=== PATIENT | male | born 1950 | race Caucasian/White ===

== ENCOUNTER 2016-10-11 08:25 | Inpatient (IN) | payer OTHER ==
[2016-10-11] MEDS ORDERED: ASPIRIN PO STA (08:31)
[2016-10-11] MEDS ORDERED: DUONEB (A & A) ONE (08:50)
[2016-10-11 08:54] LABS: MANUAL DIFF NEEDED? NO
[2016-10-11 09:10] LABS: INR 1.07 (0.86-1.15); PROTIME 14.2 Seconds (12.1-15.5); PTT PL 36.3 Seconds (22.6-43.9)
--- NOTE | 2016-10-11 09:16 | ED EKG INTERP ---
EKG Interpretation - EKG Time of EKG reading by physician:: 08:49 EKG Read and Signed by:: Xu Byrne EKG Interpretation (*Must complete 3 of following elements*): Abnormal (rhythm - sinus tachycardia with premature supraventricular complexes and with occasional premature ventricular complexes;) Rate: 110 Comments: nonspecific ST and T wave abnormality Attestation - Scribe Verification/Attestation Scribe:: Najma Larson Acting as Scribe for:: Xu Byrne Scribe documention review:: This chart was documented by a scribe and accurately reflects the service the provider performed and the decisions made by the provider.
[2016-10-11 09:17] LABS: BASO% 0.3 % (0.0-0.8); EOS# 0.02 X1000 (0.0-0.7); EOS% 0.1 % (0.0-10.0); HEMATOCRIT 44.8 % (42.0-52.0); HEMOGLOBIN 14.1 g/dL (14.0-18.0); IMM GRAN# 0.09 X1000 (0.0-0.04); IMM GRAN% 0.5 % (0.0-0.5); LYMPH# 1.26 X1000 (1.2-3.4); LYMPH% 6.6 % (20.5-51.1); MCH 27.1 PG (27-31); MCHC 31.5 g/dL (33-37); MONO# 3.06 X1000 (0.11-0.59); MONO% 16.1 % (1.7-9.3); MPV 9.9 FL (7.4-10.4); NEUT% 76.4 % (42.2-75.2); PLT 332 X1000 (130-400); RBC 5.21 XMIL (4.7-6.1)
--- NOTE | 2016-10-11 09:42 | EKG Report ---
Test Performed on : 10/11/2016 08:49:36 AM Test Reason : CHEST PAIN Blood Pressure : / mmHG Vent. Rate : 110 BPM Atrial Rate : 110 BPM P-R Int : 132 ms QRS Dur : 090 ms QT Int : 348 ms P-R-T Axes : 071 065 093 degrees QTc Int : 470 ms Sinus tachycardia. with premature supraventricular complexes. and with occasional premature ventricul ar complexes. Nonspecific ST and T wave abnormality Abnormal ECG No previous ECGs available Unconfirmed Result
[2016-10-11 09:50] LABS: AGAP 10; ALKALINE PHOSPHATASE 95 U/L (32-122); BUN 20 mg/dL (8-22); CALCIUM 10.2 mg/dL (8.8-10.2); CHLORIDE 97 mmol/L (98-107); CK PROFILE 55 U/L (24-204); COSMO 286; GOT 11 U/L (10-34); GPT < 5 U/L (10-44); MAGNESIUM 1.8 mg/dL (1.5-2.7); POTASSIUM 5.4 mmol/L (3.5-5.1); SODIUM 140 mmol/L (136-145); TCO2 33 mmol/L (25-35); TOTAL PROTEIN 8.1 g/dL (6.3-8.3)
[2016-10-11 10:01] LABS: BE 4.3 mmoll (-3.0-3.0); BLOOD TYPE ARTERIAL; DRAW SITE R BRACHIAL; O2(CT) 15.1 mL/dL (15.0-23.0); SAMPLE BLOOD; SAO2 80.4 % (95.0-100.0); THB 14.1 g/dL (11.5-17.4); pH(98.6) 7.29 (7.35-7.45)
[2016-10-11 10:03] LABS: PCO2(98.6) 69 mmHg (35-45)
[2016-10-11 10:04] LABS: PO2(98.6) 45 mmHg (60-100)
[2016-10-11 10:05] LABS: ALLEN TEST YES; MODALITY CANNULA
--- NOTE | 2016-10-11 10:06 | PROVIDER DOCUMENTATION ---
HPI-Respiratory General - General Chief Complaint: Shortness of Breath Stated Complaint: SOB/COPD Time Seen by Provider: 10/11/16 08:47 Source: patient Allergies/Adverse Reactions: Patient Allergies Allergy/AdvReac Type Severity Reaction Status Date / Time naproxen Allergy Unknown Verified 10/11/16 08:42 Penicillins Allergy NAUSEA/VOMI Verified 10/11/16 08:42 TING Home Medications: Home Medication List Medication Instructions Recorded Confirmed Last Taken Type No Home Medications 10/11/16 10/11/16 Unknown History - History of Present Illness-Resp Nature of Presenting Problem: Pt is 66 y/o M presents to the ED with SOB. Pt states having a cold for one week and SOB has become worse. Pt denies F. Pt states COPD and home O2. Quality of Pain: reports: aching Severity in ED: reports: mild Onset/Duration: reports: 1 week ago Timing: reports: still present, getting worse Exposure: reports: unknown cause Cough Quality/Degree: reports: moderate Episode Frequency: frequent episodes Current Respiratory Medication Therapy: Initiated see nurses note Modifying Factors: improves with: nothing Associated Symptoms: reports: cough, nasal congestion, shortness of breath Similar Symptoms Previously?: Yes Recently seen or treated by another doctor?: No Review of Systems - Adult - REVIEW OF SYSTEMS - ADULT Constitutional: denies: chills, fever Eyes: denies: blurred vision, double vision Ears, Nose, Mouth & Throat: denies: ear pain, nose pain, throat pain Cardiovascular: reports: irregular heart rate (tachy). denies: chest pain, heart murmur Respiratory: reports: cough, shortness of breath. denies: wheezing Gastrointestinal: denies: abdominal pain, diarrhea, nausea, vomiting Genitourinary: denies: dysuria, frequent UTI's, hematuria Musculoskeletal: denies: bone pain, joint pain, neck pain Integumentary: denies: hives, itching, mole changes Neurological: denies: dizziness/vertigo, headache/migraines Psychiatric: reports: no symptoms reported Endocrine: reports: no symptoms reported Hematologic/Lymphatic: reports: no symptoms reported Allergic/Immunologic: reports: no symptoms reported All Other Systems: Reviewed and Negative Past History - Adult - PAST MEDICAL HISTORY-ADULT Review of Records: reports: Nursing Assessment Review, Medications Reviewed, Social history reviewed & non-contributory. Major Childhood Illnesses: reports: denies history Cardiovascular: reports: denies history Respiratory: reports: COPD Gastrointestinal: reports: denies history Obstetrical/Gynecological: reports: denies history Genitourinary: reports: denies history Musculoskeletal: reports: denies history Neurological: reports: CVA Endocrine/Immune: reports: denies history Other Conditions: reports: denies history - PRIOR SURGERIES/PROCEDURES Surgical/Procedure History: reports: cardiac stent - IMMUNIZATION STATUS Childhood Immunizations: See Nurse Assessment Flu Vaccine: See Nurse Assessment - FAMILY HISTORY Family History: reviewed, not pertinent - SOCIAL HISTORY Smoking: cigarettes, greater than 1 pack/day Provider spent 3-5 mins advising pt. on dangers of tobacco.: Discussed manners to quit use, and f/u contacts for add'l counseling. Substance Use: denies Living Situation: family Physical Exam-General - PHYSICAL EXAM-ADULT Initial Vital Signs Reviewed: Yes - CONSTITUTIONAL General Appearance: appears well, alert, mild distress - EYES Eyes: PERRL/EOMI, pink conjunctivae, fundi clear, no AV nicking - HEAD, EARS, NOSE, MOUTH & THROAT HENMT: normocephalic/atraumatic, moist mucous membranes, normal ENT inspection, TMs normal, pharynx normal - NECK Neck: non-tender, full range of motion, supple, normal inspection - RESPIRATORY Respiratory: chest non-tender, lungs clear, no pleuratic chest pain, no respiratory distress, no accessory muscle use, rhonchi, increased rate - CARDIOVASCULAR Cardiovascular: normal peripheral pulses, no edema, no gallop, no JVD, no murmur , tachycardia - GASTROINTESTINAL (ABDOMEN) Abdominal Exam: normal bowel sounds, non tender, soft, no organomegaly, no pulsatile mass - LYMPHATIC Lymphatic: no adenopathy - MUSCULOSKELETAL Back Exam: normal inspection, no CVA tenderness, no vertebral tenderness Extremity: normal range of motion, non-tender, normal gait, normal inspection - SKIN Integumentary: normal color, normal turgor, warm/dry - NEUROLOGIC Neurologic: country sales manager II-XII nml as tested, grossly normal, no motor/sensory deficits - PSYCHIATRIC Psych/Mental Status: normal mood/affect, normal thought content, normal thought process, oriented x 3 Progress - PLAN OF CARE/RESULTS Progress/Plan/Lab Results: Laboratory Tests 10/11/16 10/11/16 10/11/16 08:31 08:45 08:45 WBC RBC Hgb Hct MCV MCH MCHC RDW Std Deviation Plt Count MPV Immature Gran % (Auto) Neut % (Auto) Lymph % (Auto) Churchill % (Auto) Eos % (Auto) Baso % (Auto) Immature Gran # (Auto) Neut # (Auto) Lymph # (Auto) Churchill # (Auto) Eos # (Auto) Baso # (Auto) PT INR APTT (Factor Assay) Specimen Type ARTERIAL Sample Site R BRACHIAL pH 7.29 L pCO2 69 H* pO2 45 L* HCO3 27.7 H Base Excess 4.3 H Oxyhemoglobin 76.5 L* ABG O2 Sat (Calculated) 15.1 ABG O2 Saturation 80.4 L ABG Carboxyhemoglobin 3.90 H ABG Methemoglobin 1.0 Abhishek Test YES A-a O2 Difference 68.0 Total Hemoglobin 14.1 Lactate 1.80 Liter Flow 2.0 Blood Gas Modality CANNULA FiO2 % 28.0 Sodium 140 Potassium 5.4 H Chloride 97 L Carbon Dioxide 33 Anion Gap 10 BUN 20 Creatinine 0.8 Estimated GFR/1.73 m2 > 60 BUN/Creatinine Ratio 25 Glucose 173 H Calculated Osmolality 286 Calcium 10.2 Magnesium 1.8 Total Bilirubin 0.40 AST 11 ALT < 5 L Alkaline Phosphatase 95 Creatine Kinase 55 Troponin T < 0.010 Total Protein 8.1 Albumin 4.0 Globulin 4.0 Albumin/Globulin Ratio 1.0 10/11/16 10/11/16 08:45 08:45 WBC 18.99 H RBC 5.21 Hgb 14.1 Hct 44.8 MCV 86.0 MCH 27.1 MCHC 31.5 L RDW Std Deviation 16.5 H Plt Count 332 MPV 9.9 Immature Gran % (Auto) 0.5 Neut % (Auto) 76.4 H Lymph % (Auto) 6.6 L Churchill % (Auto) 16.1 H Eos % (Auto) 0.1 Baso % (Auto) 0.3 Immature Gran # (Auto) 0.09 H Neut # (Auto) 14.51 H Lymph # (Auto) 1.26 Churchill # (Auto) 3.06 H Eos # (Auto) 0.02 Baso # (Auto) 0.05 PT 14.2 INR 1.07 APTT (Factor Assay) 36.3 Specimen Type Sample Site pH pCO2 pO2 HCO3 Base Excess Oxyhemoglobin ABG O2 Sat (Calculated) ABG O2 Saturation ABG Carboxyhemoglobin ABG Methemoglobin Abhishek Test A-a O2 Difference Total Hemoglobin Lactate Liter Flow Blood Gas Modality FiO2 % Sodium Potassium Chloride Carbon Dioxide Anion Gap BUN Creatinine Estimated GFR/1.73 m2 BUN/Creatinine Ratio Glucose Calculated Osmolality Calcium Magnesium Total Bilirubin AST ALT Alkaline Phosphatase Creatine Kinase Troponin T Total Protein Albumin Globulin Albumin/Globulin Ratio Orders Category Date Time Status Cardiac Monitoring DIRECTED Care 10/11/16 08:31 Active Oxygen Therapy- ED Nursing DIRECTED Care 10/11/16 08:31 Active Saline Loc NOW Care 10/11/16 08:31 Active CHEST-PORTABLE [RAD] Stat Exams 10/11/16 08:31 Taken ABG [RESP] Routine Lab 10/11/16 08:31 Completed BLOOD CULTURE [BLDCUL] Stat Lab 10/11/16 08:51 Ordered CBC WITH ELECTRONIC DIFF [HEME] Stat Lab 10/11/16 08:45 Completed CK PROFILE [SP CHEM] Stat Lab 10/11/16 08:45 Completed COMPREHENSIVE METABOLIC PANEL [CHEM] Stat Lab 10/11/16 08:45 Completed LACTATE, PLASMA [CHEM] Stat Lab 10/11/16 08:45 Received MAGNESIUM [CHEM] Stat Lab 10/11/16 08:45 Completed PRO B-NATRIURETIC PEPTIDE Stat Lab 10/11/16 08:45 Received [address]IME WITH INR PL [COAG] Stat Lab 10/11/16 08:[address] [COAG] Stat Lab 10/11/16 08:45 Completed SPUTUM CULTURE WITH GRAM STAIN [RM] Routine Lab 10/11/16 08:25 Results TROPONIN T Stat Lab 10/11/16 08:45 Completed Albuterol 2.5MG/Ipratrop 0.5MG [Duoneb (A & A)] Med 10/11/16 08:50 Discontinued 3 ml .ROUTE .STK-MED ONE Aspirin Med 10/11/16 08:31 Discontinued 325 mg PO STAT STA EKG [EKG] Stat Ther 10/11/16 08:31 Draft Vital Signs - 24 hr 10/11/16 10/11/16 10/11/16 08:31 08:51 09:12 Temperature 97.7 F Pulse Rate 118 H 110 H 107 H Respiratory 28 H 28 H 26 H Rate Blood Pressure 147/120 147/120 138/68 O2 Sat by Pulse 88 L 93 L Oximetry 10/11/16 10/11/16 09:14 09:45 Temperature 98.5 F Pulse Rate 110 H 100 H Respiratory 26 H 26 H Rate Blood Pressure 138/68 121/78 O2 Sat by Pulse 93 L 92 L Oximetry - XRAY 1 XRAY: Bilateral XRAY Study: Chest Impression: Abnormal XRAY Interpretation: mild pulm edema vs fibrosis - CONSULTS/PCP/HOSPITALIST Notification #1 *Consult/PCP/Hospitalist*: Dr. Sanchez Time Discussed: 10:11 (Dr. Sanchez accepted admit ) Reason/Comments: Dr. Byrne consulted with Dr. Sanchez about admit of Pt Consult Disposition: Admit Departure - Departure Time of Disposition Order: 10:09 DIAGNOSIS: Hypoxia Pneumonia Qualifiers: Pneumonia type: due to unspecified organism Laterality: unspecified laterality Lung location: unspecified part of lung Qualified Code(s): J18.9 - Pneumonia, unspecified organism Disposition: ADMITTED INPATIENT 09 Certified Medical Emergency: Emergent Condition: Stable Attestation - Scribe Verification/Attestation Scribe:: Najma Larson Acting as Scribe for:: Xu Byrne Scribe documention review:: This chart was documented by a scribe and accurately reflects the service the provider performed and the decisions made by the provider.
[2016-10-11] MEDS ORDERED: DUONEB (A & A) INH ONE (10:13)
[2016-10-11] MEDS ORDERED: NS 1,000 ML IV SCH (10:15)
[2016-10-11] MEDS ORDERED: LEVAQUIN 250 MG/D5W 50 ML IV ONE (10:30)
[2016-10-11] MEDS ORDERED: LEVAQUIN 500 MG/D5W 100 ML IV ONE (10:38)
--- NOTE | 2016-10-11 11:16 | Diag Imaging Result Document ---
PROCEDURE NAME: CHEST-PORTABLE - 10/11/2016 PORTABLE CHEST: COMPARISON: No comparison films. FINDINGS: The lungs are well expanded. The heart is not enlarged. Mild increased interstitial markings. No consolidation. No pleural effusions identified. IMPRESSION: Increased interstitial markings representing minimal pulmonary edema versus fibrosis. Followup PA and lateral may be beneficial.
[2016-10-11] MEDS ORDERED: LASIX IV ONE (11:23)
[2016-10-11] MEDS ORDERED: SOLU-MEDROL IV ONE (11:25)
[2016-10-11] MEDS: DUONEB (A & A) INH SCH ×4 (13:10→23:09)
[2016-10-11] MEDS ORDERED: PNEUMOVAX 23 IM ONE (13:47)
[2016-10-11] MEDS ORDERED: APRESOLINE IV PRN (14:09)
[2016-10-11] MEDS ORDERED: DUONEB (A & A) INH PRN (14:34)
[2016-10-11] MEDS ORDERED: SODIUM CHLORIDE 0.9% INJ SCH (14:45)
[2016-10-11] MEDS ORDERED: LOVENOX SUBQ SCH (14:45)
[2016-10-11 14:47] LABS: BE 8.3 mmoll (-3.0-3.0); BLOOD TYPE ARTERIAL; DRAW SITE R RADIAL; METHB 1.2 % (0.0-1.5); O2(CT) 18.1 mL/dL (15.0-23.0); PO2(98.6) 83 mmHg (60-100); SAMPLE BLOOD; SAO2 97.8 % (95.0-100.0); THB 13.7 g/dL (11.5-17.4); pH(98.6) 7.35 (7.35-7.45)
[2016-10-11 14:51] LABS: ALLEN TEST YES; MODALITY BI PAP; PCO2(98.6) 66 mmHg (35-45)
--- NOTE | 2016-10-11 15:36 | HISTORY AND PHYSICAL ---
PRIMARY CARE PHYSICIAN: None. CHIEF COMPLAINT: Shortness of breath and a cough that has progressively worsened over the past week. HISTORY OF PRESENTING ILLNESS: This is a 66-year-old male with a history of COPD with home O2 use who presented to [facility] with shortness of breath and a nonproductive cough that has progressively worsened over the last week despite his home O2. On arrival, the patient was noted to have an O2 saturation on 2 L via nasal cannula at 88%. He did not improve. Minimally on 4 L, he got only as high as 93%. His ABGs showed a pH of 7.29, a pCO2 of 69, a PO2 of 45 with bicarb of 27.7 on 2 L via nasal cannula. So, he is currently being placed on BiPAP at this time. He had a proBNP of 3317. Chest x-ray showed increased interstitial markings representing minimal pulmonary edema versus fibrosis and a followup PA and lateral would be beneficial. He states he is a 2 pack a day smoker and has done so for 40+ years. This patient is being admitted for further evaluation and treatment. PAST MEDICAL HISTORY: COPD with home O2 use and a CVA. PAST SURGICAL: Heart stent placement. FAMILY HISTORY: Noncontributory. SOCIAL HISTORY: Currently lives with family. Smokes 2 packs of cigarettes a day and has done so for the past 40 years. Denied any alcohol or illicit drug use. ALLERGIES: Naproxen and penicillin. HOME MEDICATIONS: He states he does not take any medicines on a routine basis at this time. LABORATORY DATA: Showed a white blood cell count of 18.99, hemoglobin of 14.1, hematocrit 44.8, platelets 332,000. PT and INR of 14.2 and 1.07. ABG showed a pH of 7.29, pCO2 69, PO2 45, bicarb 27.7, sodium of 140, potassium 5.4, chloride 97, CO2 of 33. BUN of 20, creatinine 0.8, glucose 173, magnesium of 1.8, creatine kinase of 55 with a troponin of less than 0.010 with a proBNP of 3317. Plasma lactate was 2.8. Chest x-ray showed increased interstitial markings representing minimal pulmonary edema versus fibrosis with a follow PA and lateral being beneficial. EKG showed sinus tachycardia with premature supraventricular complexes and occasional premature ventricular complexes at 110. REVIEW OF SYSTEMS: He denied any fever, chills, blurred vision, dizziness, chest pain. He has a productive cough of yellow sputum, shortness of breath. Denied any abdominal pain, constipation, diarrhea, burning or hurting with urination. PHYSICAL EXAMINATION: VITAL SIGNS: On arrival, he had a temperature of 97.7 degrees, pulse 118, respirations 28, blood pressure was 147/120 and he was saturating 88% on 2 L via nasal cannula. Currently, he is being placed on BiPAP. GENERAL: This is a 66-year-old male, who is sitting up in the bed, answers questions appropriately. HEENT: Normocephalic and atraumatic. Pupils are equal, round, reactive to light. Extraocular movements are intact. Oropharynx and nares are clear. NECK: Supple. LUNGS: Scattered wheezes throughout entire lung teran, decreased in the lower bases. Equal lung expansion and chest wall movement. Patient having productive cough of yellow sputum. BiPAP currently being placed. HEART: With regular rate and rhythm. No murmurs, rubs, or gallops. ABDOMEN: Soft, nontender, nondistended. Bowel sounds are present x4 quadrants. EXTREMITIES: There is no clubbing, cyanosis, or edema. NEUROLOGICAL: The cranial nerves 2-12 appear grossly intact. ASSESSMENT: 1. An acute chronic obstructive pulmonary disease exacerbation. 2. Acute respiratory failure. 3. Leukocytosis. 4. Hypertension. 5. Tobacco abuse. PLAN: He is being admitted to the Medical Unit at [facility] on BiPAP currently. We will continue O2 per protocol. Place on telemetry. Blood cultures x2 have been obtained. He will have DuoNebs q.4 hours, Levaquin 500 mg IV q.24. We will give him a 125 mg Solu-Medrol IV x1 and then decrease to 80 mg IV q.6 and will wean this as he improves, give him Lasix 40 mg IV x1. We will check an echocardiogram and we will place him on Norvasc 5 mg p.o. daily , 1st dose now and will give some hydralazine 10 mg IV every 6 p.r.n. for a systolic greater than 180, a diastolic greater than 100. Discussed smoking cessation with this patient who verbalized understanding and we will also give him a NicoDerm patch 21 mg daily. Dictated by NASRA Song for Warren Sanchez MD pt examined, agree with above, may have chf, will continue to follow closely APVANCET ANIKA
[2016-10-11] MEDS: PROTONIX IV SCH (15:55)
[2016-10-11] MEDS: NICODERM PATCH TD SCH (15:55)
[2016-10-11] MEDS: NORVASC PO SCH (15:56)
[2016-10-11] MEDS: LOVENOX SUBQ SCH (15:56)
[2016-10-11] MEDS: NORCO-7.5 PO PRN (16:17)
[2016-10-11] MEDS: SOLU-MEDROL IV SCH (17:46)
[2016-10-12] MEDS: SOLU-MEDROL IV SCH ×4 (00:11→18:29)
[2016-10-12] MEDS: NORCO-7.5 PO PRN (01:29)
[2016-10-12] MEDS: DUONEB (A & A) INH SCH ×6 (04:28→23:06)
[2016-10-12 07:05] LABS: HEMATOCRIT 42.3 % (42.0-52.0); HEMOGLOBIN 13.3 g/dL (14.0-18.0); MCH 26.3 PG (27-31); MCHC 31.4 g/dL (33-37); MCV 83.6 FL (81-99); MPV 10.7 FL (7.4-10.4); RBC 5.06 XMIL (4.7-6.1)
[2016-10-12 07:13] LABS: AGAP 8; BUN 24 mg/dL (8-22); CALCIUM 10.5 mg/dL (8.8-10.2); CHLORIDE 93 mmol/L (98-107); COSMO 279; MAGNESIUM 2.1 mg/dL (1.5-2.7); POTASSIUM 4.4 mmol/L (3.5-5.1); SODIUM 135 mmol/L (136-145); TCO2 33 mmol/L (25-35)
[2016-10-12] MEDS: NICODERM PATCH TD SCH (09:14)
[2016-10-12] MEDS: NORVASC PO SCH (09:14)
--- NOTE | 2016-10-12 09:35 | Diag Imaging Result Document ---
PROCEDURE NAME: CHEST-2 VIEWS - 10/12/2016 FRONTAL AND LATERAL CHEST, TWO VIEWS: COMPARISON: 10/11/2016. FINDINGS: The lungs are hyperexpanded. The heart is not enlarged. The pulmonary vessels are small. No pleural effusions. No consolidation. There are old rib fractures. Mild increased interstitial markings persist although they are less pronounced than on the prior exam. IMPRESSION: 1. Decreased pulmonary edema. The remaining increased interstitial markings may be fibrosis. 2. Emphysema.
[2016-10-12] MEDS: LEVAQUIN 500 MG/D5W 100 ML IV SCH (10:52)
[2016-10-12] MEDS ORDERED: RESTORIL PO PRN (11:59)
[2016-10-12] MEDS: LASIX IV SCH (12:51)
[2016-10-12] MEDS: MUCINEX PO SCH ×2 (12:51→20:00)
--- NOTE | 2016-10-12 14:00 | PROGRESS NOTE ---
DATE: 10/12/2016 SUBJECTIVE: The patient has no focal complaints. OBJECTIVE: Vital Signs: Blood pressure 125/68, heart rate of 81, respiratory rate 18, temperature 98.1 degrees, and 93% on 4 L. Cardiovascular: Regular rate and rhythm. Pulmonary: Diffuse end-expiratory wheezes. Air movement throughout. He is not struggling to breathe at this point. GI: Soft, nontender, nondistended. Bowel sounds are positive. LABORATORY DATA: White blood cell count has dropped to 9 from 19,000 yesterday. Hemoglobin and hematocrit at 13 and 42. Platelets of 376,000. Chemistries look okay. Potassium is up a little bit. PROBLEM LIST: 1. Acute respiratory failure secondary to chronic obstructive pulmonary disease exacerbation and atypical pneumonia versus heart failure. We will continue to wean BiPAP. He is on it nocturnally. He is on breathing treatments and steroids. Breathing incentive spirometry. CPT. Mucomyst. I am going to add Pulmicort today. Improving but very slowly. 2. Possible pulmonary edema versus interstitial pneumonia. We are checking for Legionella which would be unusual. Echo is pending but has been completed. I am going to continue some daily diuresis just because I am not completely sure there may not be a component of heart failure mixed with all this. 3. Tobacco abuse. Counseled on cessation. 4. Hypertension. Appears to be under good control. DISPOSITION: Pending improvement in his pulmonary status.
[2016-10-12] MEDS: PROTONIX IV SCH (15:02)
[2016-10-12] MEDS: LOVENOX SUBQ SCH (15:02)
--- NOTE | 2016-10-12 16:18 | ECHO REPORT ---
ORDER DATE: 10/12/2016 INTERPRETING PHYSICIAN: Dr. Price REQUESTING PHYSICIAN: Hospitalist Service at [facility] CLINICAL INDICATIONS: -year-old with . M-MODE MEASUREMENTS: Right ventricle: 2.7 cm. Left ventricle end diastole: 6.9 cm. Left ventricle end systole: 4.8 cm. Posterior wall: 1.0 cm. Interventricular septum: 1.0 cm. Left atrium: 3.1 cm. Aortic root: 4.3 cm. SUMMARY OF 2-DIMENSIONAL IMAGIN. This study is technically difficult. 2. The left ventricular systolic function appears to be mild to moderately impaired. Ejection fraction is probably in the order of 40% to 45%. 3. There is impairment of the basal and mid posterior wall. There is also impairment of the basal to mid inferior interventricular septum and basal inferior wall. The chamber is dilated. 4. There is suggestion of some concentric LVH. 5. Mitral valve shows mild degree of regurgitation. 6. The mitral inflow shows reversal of the E and the A wave. 7. The tissue Doppler of septal and lateral mitral annulus averages 6.5 cm. 8. Diastolic function is probably okay. 9. The aortic valve looks grossly normal. Color flow mapping is unremarkable. 10.Pulmonic valve was not well visualized. 11.The tricuspid valve shows mild degree of regurgitation with a pulmonary systolic pressure estimated to be somewhere in the range of 35 to 40 mmHg. 12.The inferior vena cava was not visualized. 13.There is no pericardial effusion, mass or thrombus. CONCLUSIONS: 1. This study was technically difficult. The left ventricular chamber was dilated. The global ejection fraction of the left ventricle appears to be mild to moderately impaired in the order of 40% to 45% with wall motion abnormality at the level of the inferior wall and basal posterior to mid posterior wall. It does suggest coronary artery disease. 2. Mild degree of mitral regurgitation and tricuspid regurgitation. 3. Pulmonary pressure in the order of 35 to 40 mmHg. 4. No evidence of significant diastolic dysfunction. Clinical correlation is recommended.
[2016-10-12] MEDS: PULMICORT INH SCH (19:44)
[2016-10-12] MEDS: MUCOMYST 20% INH SCH (19:44)
[2016-10-13] MEDS: SOLU-MEDROL IV SCH ×4 (01:08→21:42)
[2016-10-13] MEDS: DUONEB (A & A) INH SCH ×6 (04:00→23:47)
[2016-10-13 05:39] LABS: BE 12.4 mmoll (-3.0-3.0); BLOOD TYPE ARTERIAL; DRAW SITE L RADIAL; METHB 1.3 % (0.0-1.5); PO2(98.6) 57 mmHg (60-100); SAMPLE BLOOD; SAO2 91.4 % (95.0-100.0); THB 13.7 g/dL (11.5-17.4); pH(98.6) 7.42 (7.35-7.45)
[2016-10-13 05:55] LABS: ALLEN TEST YES; MODALITY CANNULA; PCO2(98.6) 61 mmHg (35-45)
[2016-10-13 07:17] LABS: HEMATOCRIT 42.8 % (42.0-52.0); HEMOGLOBIN 13.7 g/dL (14.0-18.0); MCH 26.3 PG (27-31); MCV 82.1 FL (81-99); MPV 10.6 FL (7.4-10.4); RBC 5.21 XMIL (4.7-6.1)
[2016-10-13 07:41] LABS: AGAP 15; BUN 31 mg/dL (8-22); CALCIUM 10.2 mg/dL (8.8-10.2); CHLORIDE 96 mmol/L (98-107); COSMO 285; MAGNESIUM 2.1 mg/dL (1.5-2.7); POTASSIUM 5.2 mmol/L (3.5-5.1); SODIUM 138 mmol/L (136-145); TCO2 28 mmol/L (25-35)
[2016-10-13] MEDS: PULMICORT INH SCH ×2 (07:57→19:51)
[2016-10-13] MEDS: MUCOMYST 20% INH SCH ×2 (08:00→19:51)
[2016-10-13] MEDS: MUCINEX PO SCH ×2 (09:12→21:42)
[2016-10-13] MEDS: NICODERM PATCH TD SCH (09:13)
[2016-10-13] MEDS: LASIX IV SCH (09:13)
[2016-10-13] MEDS: NORVASC PO SCH (09:13)
--- NOTE | 2016-10-13 09:27 | PROGRESS NOTE ---
DATE: 10/13/2016 SUBJECTIVE: The patient has no new complaints. He states he is breathing almost back to his normal baseline. In fact, the patient is actually asking to go home this morning. PHYSICAL: Temperature 97, pulse 77, respiratory 21, BP 131/71. Saturation 97% on 4 L. General: The patient is awake, alert. He is oriented. He is currently in mild respiratory distress, but he notes that this is his baseline. He is lying in the bed watching television. HEENT: Normocephalic. Neck supple. CV: Regular rate. No appreciable murmurs. Chest: Diffuse end- expiratory wheezes but decent air movement throughout, appears equal. Patient is nonlabored. Abdomen is soft, nondistended. LABORATORY DATA: WBC 21. Hemoglobin and hematocrit 13 and 42. Potassium 5.2. Glucose 145. ASSESSMENT: 1. Acute respiratory failure with hypoxemia, improving. Continue to wean oxygen. 2. Chronic obstructive pulmonary disease with an acute exacerbation. Continue the patient on BiPAP p.r.n. Currently, he is off and is tolerating well. His pCO2 is actually improving very slowly down to 61, pH is 7.4. Oxyhemoglobin is 88. 3. Leukocytosis. The patient's white count initially was 18 and then dropped down to 9 yesterday. It is back to 21 today which certainly begs the question if yesterday's lab was actually correct. The patient is improving. We will continue to wean down his steroids. He is wanting to go home. He states that he is back to his baseline, but he certainly is on too much Solu-Medrol and oxygen to just stop and go home. We will continue to attempt to wean both. 4. Chronic tobacco abuse. Again, I discussed with the patient the perils of smoking, but the patient is recalcitrant to this and does not feel as though it is necessary for him to stop. 5. Hypertension, stable. PLAN: We will decrease Solu-Medrol, decrease his breathing treatments. We will allow him to start getting up with assistance. We will recheck labs in the a.m. Hopefully, if he tolerates weaning his steroids, he can go home tomorrow.
[2016-10-13] MEDS: LEVAQUIN 500 MG/D5W 100 ML IV SCH (11:21)
[2016-10-13] MEDS: LOVENOX SUBQ SCH (14:53)
[2016-10-13] MEDS: PROTONIX IV SCH (14:53)
[2016-10-14] MEDS: DUONEB (A & A) INH SCH ×2 (03:46→07:55)
[2016-10-14 05:40] LABS: HEMATOCRIT 42.2 % (42.0-52.0); HEMOGLOBIN 13.3 g/dL (14.0-18.0); MCH 25.4 PG (27-31); MCHC 31.5 g/dL (33-37); MCV 80.7 FL (81-99); MPV 10.3 FL (7.4-10.4); RBC 5.23 XMIL (4.7-6.1)
[2016-10-14 05:56] LABS: AGAP 10; ALBUMIN 3.3 g/dL (3.5-5.0); ALKALINE PHOSPHATASE 91 U/L (32-122); BUN 32 mg/dL (8-22); CALCIUM 9.8 mg/dL (8.8-10.2); CHLORIDE 96 mmol/L (98-107); COSMO 288; GOT 17 U/L (10-34); GPT 6 U/L (10-44); MAGNESIUM 2.1 mg/dL (1.5-2.7); POTASSIUM 4.3 mmol/L (3.5-5.1); SODIUM 140 mmol/L (136-145); TCO2 35 mmol/L (25-35); TOTAL PROTEIN 6.8 g/dL (6.3-8.3)
[2016-10-14] MEDS: SOLU-MEDROL IV SCH (05:56)
[2016-10-14 07:16] VITALS: BP 147/68
[2016-10-14] MEDS: MUCOMYST 20% INH SCH (07:54)
[2016-10-14] MEDS: PULMICORT INH SCH (07:54)
[2016-10-14] MEDS: LASIX IV SCH (08:54)
[2016-10-14] MEDS: NORVASC PO SCH (08:54)
[2016-10-14] MEDS: MUCINEX PO SCH (08:55)
[2016-10-14] MEDS: NICODERM PATCH TD SCH (08:55)
--- NOTE | 2016-10-14 10:17 | DISCHARGE SUMMARY ---
ADMISSION DATE: 10/11/2016 DISCHARGE DATE: 10/14/2016 DISCHARGE DIAGNOSES: 1. Chronic obstructive pulmonary disease with moderate exacerbation improving. 2. Acute respiratory failure improving. 3. Chronic tobacco abuse. 4. Hypertension. 5. Leukocytosis improving. 6. Hypercapnic respiratory failure improving. 7. Hyperkalemia resolved. CONSULTATIONS: None. PROCEDURES: None. BRIEF HOSPITAL COURSE: Patient is a 66-year-old male, who unfortunately has a long history of tobacco abuse and COPD. He was admitted as noted on the HPI. Treated in the usual fashion. Placed on breathing treatments, Pulmicort, albuterol, Solu-Medrol. He continued to improve. He was given Lasix IV for the couple of days he was in the hospital. Thankfully on discharge he was awake, alert. He was in no distress. He was feeling better. States that he was back to his usual baseline. Notes that he had no other issues and he was asking to go home. DISPOSITION: The patient will be discharged home. Unfortunately his noncompliance certainly makes him highly likely to be readmitted. We will change to p.o. Lasix and add potassium as well. We will have him follow up with his primary care. We will continue Pulmicort twice a day, albuterol 3 times a day, Levaquin for a total of 7 days and a Medrol Dosepak. Thirty-eight minutes was spent in discharge planning and instructions. Again, discussed with patient the perils of smoking, noncompliance and ways to help.
== END 2016-10-14 11:13 | disposition home or self-care (01) | DRG 189 ==
LOC: P.ED 08:25 → P.EDIPHOLD 10:54 → P.MEDSURG 11:50
PROVIDERS: ATTEND Family Medicine
DX: J96.01 Acute respiratory failure with hypoxia (principal); J44.1 Chronic obstructive pulmonary disease with (acute) exacerbation; Z99.81 Dependence on supplemental oxygen; J96.02 Acute respiratory failure with hypercapnia; E87.5 Hyperkalemia; I10 Essential (primary) hypertension; F17.210 Nicotine dependence, cigarettes, uncomplicated; Z86.73 Personal history of transient ischemic attack (TIA), and cerebral infarction without residual deficits; Z79.899 Other long term (current) drug therapy; Z66 Do not resuscitate
CPT/HCPCS: 36415; 71010; 71020; 80048; 80053; 82550; 82805; 83605; 83735; 83880; 84484; 85025; 85027; 85610; 85730; 87040; 87070; 87184; 87205; 87899; 89220; 93005; 93306; 94640; 94660; 94667; 94668; 94761; 96361; 96365; 96375; C9113; J1650; J1940; J2920; J2930; J7030; S0164